=== PATIENT | male | born 1965 | race Caucasian/White ===

== ENCOUNTER → 2023-12-14 09:27 | Outpatient (REF) | payer OTHER, SELFPAY ==
[2023-12-14 10:53] LABS: % Basophils 0.4 % (0-2); % Eosinophils 3.5 % (0-6); % Immature Granulocytes 0.3 % (0-0.5); % Lymphocytes 29.2 % (20.5-51.1); % Monocytes 10.1 % (1.7-9.3); % Neutrophils 56.5 % (42.2-75.2); Absolute Eosinophils 0.3 10^3/uL (0-0.7); Absolute Lymphocytes 2.1 10^3/uL (1.2-3.4); Absolute Monocytes 0.7 10^3/uL (0.1-0.6); Absolute Neutrophils 4.1 10^3/uL (1.4-6.5); Hematocrit 42.7 % (39.0-52.0); Hemoglobin 14.5 g/dL (13.0-18.0); Mean Corpuscular Hgb 29.4 pg (27.0-31.0); Mean Corpuscular Volume 86.4 fL (80.0-94.0); Mean Platelet Volume 9.7 fL (7.4-10.4); Nucleated Red Blood Cells % 0 % (-); Platelet Count 247 10^3/uL (130-400); Red Blood Cell Count 4.94 10^6/uL (4.70-6.10); Red Cell Dist. Width 13.6 % (11.5-14.5); White Blood Cell Count 7.2 10^3/uL (4.8-10.8)
[2023-12-14 11:49] LABS: ALT (SGPT) 21 U/L (0-50); AST (SGOT) 30 U/L (17-59); Albumin 4.4 g/dl (3.5-5.0); Alkaline Phosphatase 50 U/L (38-126); Blood Urea Nitrogen 19 mg/dl (9-20); Calcium 9.4 mg/dl (8.4-10.2); Carbon Dioxide 27 mmol/L (22-30); Chloride 103 mmol/L (98-107); Glucose 92 mg/dl (70-99); Sodium 138 mmol/L (135-145); Total Bilirubin 0.5 mg/dl (0.2-1.3); Total Protein 7.7 g/dl (6.3-8.2); eGFR > 60.00
[2023-12-14 12:14] LABS: CEA 2.99 ng/ml
== END ==
LOC: REG 09:27
PROVIDERS: ATTENDING PHYSICIAN Internal Medicine Hematology & Oncology; REFERRING PHYSICIAN Surgery
DX: C20 Malignant neoplasm of rectum (principal); D50.0 Iron deficiency anemia secondary to blood loss (chronic); G62.0 Drug-induced polyneuropathy
CPT/HCPCS: 36415; 80053; 82378; 85025

== ENCOUNTER 2025-01-27 10:22 | Emergency (ER) | payer OTHER, SELFPAY ==
[2025-01-27 10:57] VITALS: BP 154/83
[2025-01-27 12:12] LABS: Urine Character Slightly Cloudy (Clear)
[2025-01-27 12:36] LABS: Urine Red Blood Cell >100 /HPF (0-2); Urine Squamous Cell 0-2 /LPF (Few)
[2025-01-27 12:37] LABS: Urine White Cell 30-40 /HPF (0-5)
--- NOTE | 2025-01-27 12:53 | ED.GENMED ---
Addendum entered and electronically signed by Hernandez Mast PA-C 01/30/25 07:28:
On cefdinir, should be adequate coverage for staph epidermidis given sensitivity to PCNs
Original Note:
History of Present Illness
General
Chief Complaint: Urinary Symptoms
Source: patient
Exam Limitations: none
Time Seen by Provider: 01/27/25 12:17
History of Present Illness
History of Present Illness:
59yoM with a prior history of colorectal cancer s/p colostomy/multiple prior surgeries currently in remission presenting for evaluation of hematuria that began earlier today. Urine is described as dark red without clots. He had some mild soreness
in his lower back last night. No associated dysuria, urinary retention, fevers, chills, vomiting, flank pain, testicular pain. He has been having nocturia and difficulty initiating his urine stream for the past few months. 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 He does not take any blood thinners.
Past History
Past History
ED Past Medical History: Cancer (rectal, tubulovillous adenoma discovered in 2016) and Other (C. difficile, epididymitis, hydrocele)
ED Past Surgical History: Bowel resection (Ileostomy with reversal)
Social History
Tobacco: Non-smoker
Alcohol: None
Drug: None
Personal:
Living: with family
Employment: Employed
Family History
Family History: Other (reviewed and noncontributory)
Phy Exam
General Physical Exam
General Presentation: well appearing and no apparent distress
General Skin: warm and dry
General Habitus: normal
General Mental: alert
ENT Exam
ENT Exam: normocephalic
Pulmonary Exam
Pulmonary Exam: no respiratory distress
Gastrointestinal Exam
Gastrointestinal Exam: non tender, soft, non distended, no cva tenderness and surgical scar
External Findings: colostomy
Neurological Exam
Neurological Exam: alert
Seda Coma Scale
Eye Opening: Spontaneous
Verbal Response: Oriented
Motor Response: Obeys Commands
GCS Total Score: 15
Skin Exam
Skin Exam: normal color and warm/dry
Psychiatric Exam
Psychiatric Exam: normal mood/affect
Course
Orders/Labs/Results
Orders:
Orders
01/27/25 12:02
Urinalysis Reflex To Culture Urgent
Date Specimen was Collected: 01/27/25
Time Specimen was Collected: 11:58
Urine Microscopic Reflex Cult Urgent
Urine Culture Urgent
CHERIE Source: U
Specimen Description:
Date Specimen was Collected: 01/27/25
Time Specimen was Collected: 11:58
01/27/25 12:45
Renal & Bladder US [US Renal With Bladder] Urgent
Comment:
Reason For Exam: hematuria
01/27/25 13:13
Complete Blood Count/With Diff Urgent
Comprehensive Metabolic Panel Urgent
01/27/25 15:35
Cefdinir [Omnicef] 300 mg PO NOW STA
Abnormal Lab Results
01/27/25 01/27/25
12:02 13:13
Absolute Monos (auto) 0.8 H 10^3/uL
(0.1-0.6)
Ur Occult Blood Reflex 4+ A
(Negative)
Urine Nitrite (Reflex) Positive A
(Negative)
Leukocyte Esterase Rfl 3+ A
(Negative)
Urine RBC >100 A /HPF
(0-2)
Urine WBC (Reflex) 30-40 A /HPF
(0-5)
Urine Bacteria (Reflex) Moderate A
(Negative)
Urine Albumin (Reflex) 3+ A
(Neg - Trace)
01/27/25 13:13
01/27/25 13:13
Vital Signs
Initial and Last Documented VS:
Initial Vital Signs
Temp Pulse Resp BP Pulse Ox
98.1 F 75 16 154/83 98
01/27/25 10:57 01/27/25 10:57 01/27/25 10:57 01/27/25 10:57 01/27/25 10:57
Last Documented Vital Signs
Temp Pulse Resp BP Pulse Ox
98.1 F 74 18 130/74 98
01/27/25 10:57 01/27/25 16:16 01/27/25 16:16 01/27/25 16:16 01/27/25 16:16
MDM/Problems Addressed
Differential Diagnosis Includes:
59yoM here with hematuria that began earlier today. C/o mild lower back soreness. No associated f/c or vomiting. He is well appearing in no distress and vitals are stable. No abdominal or CVA tenderness noted. Differential diagnosis includes but is
not limited to: UTI, BPH, kidney stone, malignancy, radiation cystitis
Initial ED plan: Check CBC, CMP, UA, and renal/bladder ultrasound.
*Pulse Oximetry
SaO2: 98
Oxygen Mode of Delivery: Room air
Patient hypoxic: no
*Critical Care Note
Total Time (30-74mins, 75-104mins- exclusive of procedures): Not Applicable
Update Note
Update Note:
UA nitrite positive with 3+ leukocytes and 4+ blood consistent with infection. Labs unremarkable including normal white count and renal function. US shows findings suggestive of cystitis. No nephrolithiasis or hydronephrosis. He is stable for
discharge. Patient was started on a course of cefdinir. Advised f/u with urologyo and ED return precautions reviewed.
ED Attending Note
-
Portions of this chart may have been created with voice recognition software.� Occasional wrong word or��sound alike� substitutions may have occurred due to the inherent limitations of voice recognition software.
Discharge Plan
Departure
Patient Disposition: Home (Routine Discharge)
Date of Disposition: 01/27/25
Time of Disposition: 15:35
Patient with high blood pressure during this ER visit?: Yes
Discharge Problem:
Hemorrhagic cystitis
Instructions: Urinary Tract Infection, Adult (DC), Blood in the Urine (Hematuria), Adult (DC)
Prescriptions:
New
cefdinir 300 mg capsule
300 mg PO BID Qty: 13 0RF
No Action
Lactobac 2-Bifido 1-S. therm [High Potency Probiotic] 1 CAP capsule
1 cap PO DAILY
polyethylene glycol 3350 17 GRAMS powder in packet
17 grams PO DAILYPRN PRN (Reason: constipation) 0RF
fluconazole 200 MG tablet
200 mg PO DAILY Qty: 13 0RF
tamsulosin 0.4 MG capsule
0.4 mg PO DAILY Qty: 30 0RF
pcqwjishryqf-ivtmzfuvev-yygvsa [Zosyn in dextrose (iso-osm)] 3.375 GRAM/50 ML piggyback
3.375 g IV Q6H 0RF
Rx Instructions:
ON HOME INFUSION
duloxetine 30 MG capsule,delayed release(DR/EC)
30 mg PO DAILY Qty: 30 0RF
cholecalciferol (vitamin D3) 2,000 UNITS tablet
2,000 units PO DAILY 0RF
vancomycin [Vancocin] 250 MG capsule
250 mg PO DAILY Qty: 30 0RF
amoxicillin-pot clavulanate 875-125 mg tablet
1 tab PO BID Qty: 20 0RF
Referrals:
Wilfrid Fitzgerald MD [Active, Urology]
José Miguel Raman MD [Family Provider, Family Practice]
Activity Restrictions/Additional Instructions:
Take antibiotics as prescribed. Drink plenty of fluids and stay hydrated.
Please follow-up with urology. Return to the ER with any worsening symptoms including fevers, flank pain, vomiting, or urinary retention.
Interventions
Interventions:
*Risk Screen - Suicide Last Done: 01/27/25 10:57
*General Assessment Last Done: 01/27/25 12:18
*Neglect/Abuse Screening Last Done: 01/27/25 10:57
*Nursing Disposition Last Done: 01/27/25 16:18
ED-Male Genitourinary Assessment Last Done: 01/27/25 12:18
Discharge Date and Time
Discharge Date/Time: 01/27/25 16:45
Print Language: [place]
[2025-01-27 13:35] LABS: Hematocrit 41.9 % (39.0-52.0); Hemoglobin 14.3 g/dL (13.0-18.0); Mean Corp Hgb Conc. 34.1 g/dL (33.0-37.0); Mean Corpuscular Volume 84.6 fL (80.0-94.0); Nucleated Red Blood Cells % 0 % (-); Platelet Count 262 10^3/uL (130-400); Red Cell Dist. Width 13.0 % (11.5-14.5)
[2025-01-27 13:44] LABS: ALT (SGPT) 23 U/L (0-50); AST (SGOT) 27 U/L (17-59); Albumin 4.5 g/dl (3.5-5.0); Alkaline Phosphatase 43 U/L (38-126); Blood Urea Nitrogen 17 mg/dl (9-20); Calcium 8.9 mg/dl (8.4-10.2); Carbon Dioxide 28 mmol/L (22-30); Chloride 105 mmol/L (98-107); Glucose 84 mg/dl (70-99); Potassium 4.2 mmol/L (3.5-5.1); Sodium 139 mmol/L (135-145); Total Protein 8.1 g/dl (6.3-8.2); eGFR > 60.00
[2025-01-27] MEDS: OMNICEF 300 MG PO (16:10)
[2025-01-27 16:16] VITALS: BP 130/74
== END 2025-01-27 16:45 | disposition home or self-care (01) ==
LOC: EMR 10:22
PROVIDERS: Emergency Medicine; Physician Assistant; EMERGENCY PHYSICIAN Emergency Medicine; FAMILY PHYSICIAN Family Medicine
DX: N30.91 Cystitis, unspecified with hematuria (principal); Z85.048 Personal history of other malignant neoplasm of rectum, rectosigmoid junction, and anus; Z86.0101 Personal history of adenomatous and serrated colon polyps; Z93.3 Colostomy status
CPT/HCPCS: 99284; 76770; 80053; 81003; 81015; 85025; 87086; 87147; 87186